=== PATIENT | female | born 1935 | race Caucasian/White ===

== ENCOUNTER 2018-09-12 21:55 | Inpatient (IN) | payer MEDICARE, OTHER, MEDICAID ==
[2018-09-13] MEDS: SOD CHLORIDE 0.9% 500 ML IV ×2 (01:02→10:47)
[2018-09-13 01:48] LABS: ADD MAN DIFF? NO
[2018-09-13 01:51] LABS: WHITE BLOOD COUNT 8.5 10^3/ul (4.8-10.8)
[2018-09-13 01:51] LABS: BASOPHILS % 0.1 % (0.0-2.0); EOSINOPHILS % 0.1 % (0.0-7.0); HEMATOCRIT 39.3 % (37.0-47.0); HEMOGLOBIN 12.9 g/dl (12.0-16.0); LYMPHOCYTES # 2.8 10^3/ul (0.8-2.9); LYMPHOCYTES % 32.6 % (15.0-51.0); MEAN CORPUSCULAR HEMOGLOBIN 31.9 pg (29.0-33.0); MEAN CORPUSCULAR HGB CONC 32.8 g/dl (32.0-37.0); MEAN CORPUSCULAR VOLUME 97.3 fl (82.0-101.0); MEAN PLATELET VOLUME 11.4 fl (7.4-10.4); MONOCYTE # 0.5 10^3/ul (0.3-0.9); NEUTROPHIL # 5.2 10^3/ul (1.6-7.5); NUCLEATED RED BLOOD CELLS% 0.2 /100WBC (0.0-0.0); PLATELET COUNT 147 10^3/UL (140-415); RED BLOOD COUNT 4.04 10^6/ul (4.20-5.40)
[2018-09-13] MEDS: morphine 2 MG INJ IV (01:51)
[2018-09-13] MEDS: ONDANSETRON 4 MG INJ IV (01:51)
[2018-09-13 02:08] LABS: ALANINE AMINOTRANSFERASE 120 IU/L (13-69); ALBUMIN 3.5 g/dl (3.3-4.9); ALKALINE PHOSPHATASE 104 IU/L (42-121); ANION GAP 11 (5-13); ASPARTATE AMINO TRANSFERASE 95 IU/L (15-46); BLOOD UREA NITROGEN 43 mg/dl (7-20); CALCIUM 8.3 mg/dl (8.4-10.2); CARBON DIOXIDE 26 mmol/L (21-31); CHLORIDE 102 mmol/L (97-110); CREATININE 1.53 mg/dl (0.44-1.00); GLUCOSE 106 mg/dl (70-220); LIPASE 76 U/L (23-300); POTASSIUM 3.6 mmol/L (3.5-5.1); SODIUM 139 mmol/L (135-144); TOTAL PROTEIN 6.4 g/dl (6.1-8.1)
[2018-09-13 02:21] LABS: TROPONIN-I 0.045 ng/ml (0.000-0.120)
[2018-09-13] MEDS: metroNIDAZOLE 500 MG/NS (PMX) 100 ML IVPB ×3 (04:42→22:15)
[2018-09-13] MEDS ORDERED: ONDANSETRON 4 MG INJ IV (05:00)
[2018-09-13] MEDS ORDERED: ACETAMINOPHEN 325 MG TAB PO (05:00)
[2018-09-13] MEDS: CIPROFLOXACIN 400MG/D5W 200 ML IVPB (05:36)
[2018-09-13 10:12] LABS: ADD UMIC YES; UR ASCORBIC ACID NEGATIVE (NEGATIVE); UR BACTERIA FEW /HPF (NONE SEEN); UR BILIRUBIN (Dip) NEGATIVE (NEGATIVE); UR BLOOD (Dip) NEGATIVE (NEGATIVE); UR CLARITY CLEAR (CLEAR); UR COLOR YELLOW (YELLOW); UR GLUCOSE (Dip) NEGATIVE (NEGATIVE); UR KETONES (Dip) NEGATIVE (NEGATIVE); UR LEUKOCYTE ESTERASE (Dip) 1+ Leu/ul (NEGATIVE); UR NITRITE (Dip) NEGATIVE (NEGATIVE); UR RBC 1 /HPF (0-5); UR SPECIFIC GRAVITY (Dip) 1.017 (1.003-1.030); UR TOTAL PROTEIN (Dip) NEGATIVE (NEGATIVE); UR UROBILINOGEN (Dip) NEGATIVE (NEGATIVE); UR WBC 36 /HPF (0-5)
[2018-09-13] MEDS: METOPROLOL 25 MG TAB PO (11:53)
[2018-09-13] MEDS: D5W-0.45 NACL + KCL 20 MEQ 1,000 ML IV (11:53)
[2018-09-13] MEDS: METOPROLOL 100 MG TAB PO (12:00)
[2018-09-13] MEDS: APIXABAN 5 MG TABLET PO ×2 (14:07→21:13)
[2018-09-13] MEDS: LEVOTHYROXINE 25 MCG TAB PO (14:07)
[2018-09-13] MEDS: FERROUS SULFATE (EC) 325 MG TAB PO ×2 (14:07→21:13)
[2018-09-13] MEDS: METOPROLOL 50 MG TAB PO ×2 (21:00→22:41)
[2018-09-13] MEDS: FUROSEMIDE 20 MG TAB PO (22:29)
[2018-09-14] MEDS: CIPROFLOXACIN 400MG/D5W 200 ML IVPB (02:51)
[2018-09-14] MEDS: metroNIDAZOLE 500 MG/NS (PMX) 100 ML IVPB (06:00)
[2018-09-14] MEDS: PANTOPRAZOLE (EC) 40 MG TAB PO (06:14)
[2018-09-14] MEDS: D5W-0.45 NACL + KCL 20 MEQ 1,000 ML IV ×2 (06:39→14:09)
[2018-09-14] MEDS: LEVOTHYROXINE 25 MCG TAB PO (06:42)
[2018-09-14 08:30] LABS: ADD MAN DIFF? NO
[2018-09-14 08:41] LABS: BASOPHILS % 0.3 % (0.0-2.0); EOSINOPHILS % 0.3 % (0.0-7.0); HEMATOCRIT 41.5 % (37.0-47.0); HEMOGLOBIN 13.5 g/dl (12.0-16.0); LYMPHOCYTES # 2.7 10^3/ul (0.8-2.9); LYMPHOCYTES % 36.1 % (15.0-51.0); MEAN CORPUSCULAR HEMOGLOBIN 32.4 pg (29.0-33.0); MEAN CORPUSCULAR HGB CONC 32.5 g/dl (32.0-37.0); MEAN CORPUSCULAR VOLUME 99.5 fl (82.0-101.0); MEAN PLATELET VOLUME 11.2 fl (7.4-10.4); MONOCYTE # 0.6 10^3/ul (0.3-0.9); MONOCYTES % 8.2 % (0.0-11.0); NEUTROPHIL # 4.1 10^3/ul (1.6-7.5); NEUTROPHILS % 54.6 % (39.0-77.0); NUCLEATED RED BLOOD CELLS # 0.1 10^3/ul (0.0-0.0); NUCLEATED RED BLOOD CELLS% 0.8 /100WBC (0.0-0.0); PLATELET COUNT 147 10^3/UL (140-415); RED BLOOD COUNT 4.17 10^6/ul (4.20-5.40); RED CELL DISTRIBUTION WIDTH 19.2 % (11.5-14.5)
[2018-09-14 08:41] LABS: WHITE BLOOD COUNT 7.5 10^3/ul (4.8-10.8)
[2018-09-14 08:58] LABS: ALANINE AMINOTRANSFERASE 153 IU/L (13-69); ALBUMIN 3.3 g/dl (3.3-4.9); ALBUMIN/GLOBULIN RATIO 1.22; ALKALINE PHOSPHATASE 73 IU/L (42-121); ANION GAP 9 (5-13); ASPARTATE AMINO TRANSFERASE 122 IU/L (15-46); BILIRUBIN,INDIRECT 0.8 mg/dl (0-1.1); BILIRUBIN,TOTAL 0.8 mg/dl (0.2-1.3); BLOOD UREA NITROGEN 29 mg/dl (7-20); CALCIUM 7.8 mg/dl (8.4-10.2); CARBON DIOXIDE 27 mmol/L (21-31); CHLORIDE 102 mmol/L (97-110); CREATININE 1.15 mg/dl (0.44-1.00); GLUCOSE 136 mg/dl (70-220); POTASSIUM 3.9 mmol/L (3.5-5.1); SODIUM 138 mmol/L (135-144)
[2018-09-14] MEDS: EZETIMIBE 10 MG TAB PO (09:15)
[2018-09-14] MEDS: AMIODARONE 200 MG TAB PO (09:15)
[2018-09-14] MEDS: METOPROLOL 50 MG TAB PO ×2 (09:15→10:48)
[2018-09-14] MEDS: FERROUS SULFATE (EC) 325 MG TAB PO ×3 (09:15→21:04)
[2018-09-14] MEDS: FOLIC ACID 1 MG TAB PO (09:16)
[2018-09-14] MEDS: DONEPEZIL 10 MG TAB PO (09:16)
[2018-09-14] MEDS: CHOLECALCIFEROL 2,000 UNIT CAP PO (09:16)
[2018-09-14] MEDS: LOSARTAN 50 MG TAB PO (09:16)
[2018-09-14] MEDS: APIXABAN 5 MG TABLET PO ×2 (09:17→21:06)
[2018-09-14] MEDS: ESCITALOPRAM 10 MG TAB PO (09:17)
[2018-09-14] MEDS: FUROSEMIDE 20 MG TAB PO (09:17)
[2018-09-14 09:30] LABS: MAGNESIUM 1.8 mg/dl (1.7-2.5)
[2018-09-14] MEDS: METOPROLOL 100 MG TAB PO ×2 (15:33→21:00)
[2018-09-15] MEDS: LORAZEPAM 0.5 MG TAB PO (01:13)
[2018-09-15] MEDS: D5W-0.45 NACL + KCL 20 MEQ 1,000 ML IV ×2 (02:00→15:17)
[2018-09-15] MEDS: LOPERAMIDE 2 MG CAP PO (02:45)
[2018-09-15] MEDS: LEVOTHYROXINE 25 MCG TAB PO ×2 (06:00→10:46)
[2018-09-15 06:50] LABS: ADD MAN DIFF? NO
[2018-09-15 06:53] LABS: BASOPHILS % 0.1 % (0.0-2.0); HEMATOCRIT 37.3 % (37.0-47.0); HEMOGLOBIN 12.4 g/dl (12.0-16.0); LYMPHOCYTES # 2.3 10^3/ul (0.8-2.9); LYMPHOCYTES % 32.3 % (15.0-51.0); MEAN CORPUSCULAR HEMOGLOBIN 32.8 pg (29.0-33.0); MEAN CORPUSCULAR HGB CONC 33.2 g/dl (32.0-37.0); MEAN CORPUSCULAR VOLUME 98.7 fl (82.0-101.0); MEAN PLATELET VOLUME 11.2 fl (7.4-10.4); MONOCYTE # 0.6 10^3/ul (0.3-0.9); MONOCYTES % 7.9 % (0.0-11.0); NEUTROPHIL # 4.1 10^3/ul (1.6-7.5); NEUTROPHILS % 59.3 % (39.0-77.0); NUCLEATED RED BLOOD CELLS # 0.5 10^3/ul (0.0-0.0); NUCLEATED RED BLOOD CELLS% 7.6 /100WBC (0.0-0.0); PLATELET COUNT 128 10^3/UL (140-415); RED BLOOD COUNT 3.78 10^6/ul (4.20-5.40); RED CELL DISTRIBUTION WIDTH 19.3 % (11.5-14.5)
[2018-09-15] MEDS: PANTOPRAZOLE (EC) 40 MG TAB PO (06:53)
[2018-09-15 07:18] LABS: ANION GAP 10 (5-13); BLOOD UREA NITROGEN 30 mg/dl (7-20); CALCIUM 7.7 mg/dl (8.4-10.2); CARBON DIOXIDE 21 mmol/L (21-31); CHLORIDE 103 mmol/L (97-110); CREATININE 1.43 mg/dl (0.44-1.00); GLUCOSE 129 mg/dl (70-220); SODIUM 134 mmol/L (135-144)
[2018-09-15] MEDS: ONDANSETRON 4 MG INJ IV (10:38)
[2018-09-15] MEDS: EZETIMIBE 10 MG TAB PO (10:46)
[2018-09-15] MEDS: ESCITALOPRAM 10 MG TAB PO (10:46)
[2018-09-15] MEDS: METOPROLOL 100 MG TAB PO ×2 (10:47→22:19)
[2018-09-15] MEDS: DONEPEZIL 10 MG TAB PO (10:48)
[2018-09-15] MEDS: FOLIC ACID 1 MG TAB PO (10:48)
[2018-09-15] MEDS: CHOLECALCIFEROL 2,000 UNIT CAP PO (10:48)
[2018-09-15] MEDS: FERROUS SULFATE (EC) 325 MG TAB PO ×3 (10:48→21:00)
[2018-09-15] MEDS: APIXABAN 5 MG TABLET PO ×2 (10:48→22:18)
[2018-09-15] MEDS: LOSARTAN 50 MG TAB PO (10:48)
[2018-09-15] MEDS: AMIODARONE 200 MG TAB PO (10:49)
[2018-09-15] MEDS: FUROSEMIDE 20 MG TAB PO (10:49)
[2018-09-15] MEDS: DEXTROSE 5%-0.45% NACL 1,000 ML IV (22:26)
[2018-09-16 06:13] LABS: ADD MAN DIFF? NO
[2018-09-16 06:27] LABS: BASOPHILS % 0.2 % (0.0-2.0); EOSINOPHILS % 0.2 % (0.0-7.0); HEMATOCRIT 36.6 % (37.0-47.0); HEMOGLOBIN 11.6 g/dl (12.0-16.0); LYMPHOCYTES # 1.9 10^3/ul (0.8-2.9); LYMPHOCYTES % 30.5 % (15.0-51.0); MEAN CORPUSCULAR HEMOGLOBIN 32.4 pg (29.0-33.0); MEAN CORPUSCULAR HGB CONC 31.7 g/dl (32.0-37.0); MEAN CORPUSCULAR VOLUME 102.2 fl (82.0-101.0); MEAN PLATELET VOLUME 11.6 fl (7.4-10.4); MONOCYTE # 0.6 10^3/ul (0.3-0.9); MONOCYTES % 8.9 % (0.0-11.0); NEUTROPHIL # 3.7 10^3/ul (1.6-7.5); NEUTROPHILS % 59.7 % (39.0-77.0); NUCLEATED RED BLOOD CELLS # 0.6 10^3/ul (0.0-0.0); NUCLEATED RED BLOOD CELLS% 9.4 /100WBC (0.0-0.0); PLATELET COUNT 109 10^3/UL (140-415); RED BLOOD COUNT 3.58 10^6/ul (4.20-5.40); RED CELL DISTRIBUTION WIDTH 20.5 % (11.5-14.5)
[2018-09-16 06:27] LABS: WHITE BLOOD COUNT 6.2 10^3/ul (4.8-10.8)
[2018-09-16] MEDS: PANTOPRAZOLE (EC) 40 MG TAB PO (06:51)
[2018-09-16] MEDS: LEVOTHYROXINE 25 MCG TAB PO (06:51)
[2018-09-16] MEDS: LOSARTAN 50 MG TAB PO (08:51)
[2018-09-16] MEDS: AMIODARONE 200 MG TAB PO (08:52)
[2018-09-16] MEDS: DONEPEZIL 10 MG TAB PO (08:52)
[2018-09-16] MEDS: ESCITALOPRAM 10 MG TAB PO (08:53)
[2018-09-16] MEDS: METOPROLOL 100 MG TAB PO ×2 (08:53→21:49)
[2018-09-16] MEDS: APIXABAN 5 MG TABLET PO ×2 (08:54→21:49)
[2018-09-16] MEDS: CHOLECALCIFEROL 2,000 UNIT CAP PO (08:54)
[2018-09-16] MEDS: FOLIC ACID 1 MG TAB PO (08:54)
[2018-09-16] MEDS: FERROUS SULFATE (EC) 325 MG TAB PO ×3 (08:54→21:00)
[2018-09-16] MEDS: FUROSEMIDE 20 MG TAB PO (08:55)
[2018-09-16] MEDS: PSYLLIUM 28% PACKET PO (08:55)
[2018-09-16] MEDS: EZETIMIBE 10 MG TAB PO (08:58)
[2018-09-16 09:12] LABS: ANION GAP 11 (5-13); BLOOD UREA NITROGEN 40 mg/dl (7-20); CALCIUM 7.9 mg/dl (8.4-10.2); CARBON DIOXIDE 21 mmol/L (21-31); CHLORIDE 101 mmol/L (97-110); CREATININE 2.41 mg/dl (0.44-1.00); GLUCOSE 121 mg/dl (70-220); POTASSIUM 5.3 mmol/L (3.5-5.1); SODIUM 133 mmol/L (135-144)
[2018-09-16 10:05] LABS: ANISOCYTOSIS 2+ (0-0); BAND NEUTROPHILS % (M) 1 % (0-4); BURR CELLS 2+ (0-0); ERYTHROBLAST% (NRBC) (M) 21 % (0-0); LYMPHOCYTES #M 1.9 10^3/ul (0.8-2.9); LYMPHOCYTES % (M) 32 % (15-51); MONOCYTE #M 0.4 10^3/ul (0.3-0.9); MONOCYTES % (M) 7 % (0-11); OVALOCYTES 1+ (0-0); PLATELET ESTIMATE DECREASED; POIKILOCYTOSIS 3+ (0-0); REACTIVE LYMPHOCYTES% (M) 1 % (0-0); SEG NEUT #M 3.7 10^3/ul (1.6-7.5); SEGMENTED NEUTROPHILS (M) % 59 % (39-77); SMUDGE%M 24 % (0-0)
[2018-09-16] MEDS: ONDANSETRON 4 MG INJ IV (12:33)
[2018-09-16] MEDS: LORAZEPAM 0.5 MG TAB PO (21:48)
[2018-09-17] MEDS: DEXTROSE 5%-0.45% NACL 1,000 ML IV ×2 (04:22→23:18)
[2018-09-17 05:25] LABS: ADD MAN DIFF? NO
[2018-09-17 05:31] LABS: WHITE BLOOD COUNT 6.6 10^3/ul (4.8-10.8)
[2018-09-17 05:31] LABS: BASOPHILS % 0.2 % (0.0-2.0); EOSINOPHILS % 0.3 % (0.0-7.0); HEMATOCRIT 37.4 % (37.0-47.0); HEMOGLOBIN 12.4 g/dl (12.0-16.0); LYMPHOCYTES # 2.7 10^3/ul (0.8-2.9); LYMPHOCYTES % 40.5 % (15.0-51.0); MEAN CORPUSCULAR HEMOGLOBIN 32.7 pg (29.0-33.0); MEAN CORPUSCULAR HGB CONC 33.2 g/dl (32.0-37.0); MEAN CORPUSCULAR VOLUME 98.7 fl (82.0-101.0); MEAN PLATELET VOLUME 11.4 fl (7.4-10.4); MONOCYTE # 0.6 10^3/ul (0.3-0.9); MONOCYTES % 8.6 % (0.0-11.0); NEUTROPHIL # 3.3 10^3/ul (1.6-7.5); NEUTROPHILS % 50.1 % (39.0-77.0); NUCLEATED RED BLOOD CELLS # 0.3 10^3/ul (0.0-0.0); NUCLEATED RED BLOOD CELLS% 4.6 /100WBC (0.0-0.0); PLATELET COUNT 105 10^3/UL (140-415); RED BLOOD COUNT 3.79 10^6/ul (4.20-5.40)
[2018-09-17] MEDS: PANTOPRAZOLE (EC) 40 MG TAB PO (06:06)
[2018-09-17] MEDS: LEVOTHYROXINE 25 MCG TAB PO (06:06)
[2018-09-17 06:18] LABS: ANION GAP 9 (5-13); BLOOD UREA NITROGEN 43 mg/dl (7-20); CARBON DIOXIDE 23 mmol/L (21-31); CHLORIDE 97 mmol/L (97-110); CREATININE 2.56 mg/dl (0.44-1.00); GLUCOSE 106 mg/dl (70-220); SODIUM 129 mmol/L (135-144)
[2018-09-17 07:15] LABS: ADD UMIC YES; UR ASCORBIC ACID NEGATIVE (NEGATIVE); UR BACTERIA FEW /HPF (NONE SEEN); UR BILIRUBIN (Dip) NEGATIVE (NEGATIVE); UR BLOOD (Dip) NEGATIVE (NEGATIVE); UR CLARITY CLOUDY (CLEAR); UR COLOR YELLOW (YELLOW); UR GLUCOSE (Dip) NEGATIVE (NEGATIVE); UR HYALINE CAST FEW /HPF (NONE SEEN); UR KETONES (Dip) NEGATIVE (NEGATIVE); UR LEUKOCYTE ESTERASE (Dip) 2+ Leu/ul (NEGATIVE); UR NITRITE (Dip) NEGATIVE (NEGATIVE); UR RBC 5 /HPF (0-5); UR SPECIFIC GRAVITY (Dip) 1.014 (1.003-1.030); UR SQUAMOUS EPITHELIAL CELL FEW /HPF (FEW); UR TOTAL PROTEIN (Dip) 2+ mg/dl (NEGATIVE); UR TRANSITIONAL EPI CELL FEW /HPF (NONE SEEN); UR UROBILINOGEN (Dip) NEGATIVE (NEGATIVE); UR WBC 111 /HPF (0-5)
[2018-09-17] MEDS: CHOLECALCIFEROL 2,000 UNIT CAP PO (08:56)
[2018-09-17] MEDS: EZETIMIBE 10 MG TAB PO (08:56)
[2018-09-17] MEDS: ESCITALOPRAM 10 MG TAB PO (08:56)
[2018-09-17] MEDS: APIXABAN 5 MG TABLET PO ×2 (08:56→21:42)
[2018-09-17] MEDS: FOLIC ACID 1 MG TAB PO (08:56)
[2018-09-17] MEDS: DONEPEZIL 10 MG TAB PO (08:57)
[2018-09-17] MEDS: METOPROLOL 100 MG TAB PO ×2 (08:57→21:41)
[2018-09-17] MEDS: PSYLLIUM 28% PACKET PO (08:57)
[2018-09-17] MEDS: FERROUS SULFATE (EC) 325 MG TAB PO ×3 (08:57→21:00)
[2018-09-17] MEDS: AMIODARONE 200 MG TAB PO (08:58)
[2018-09-17] MEDS: ONDANSETRON 4 MG INJ IV (12:30)
[2018-09-17] MEDS: LORAZEPAM 0.5 MG TAB PO (23:18)
[2018-09-18] MEDS: ACETAMINOPHEN 325 MG TAB PO (00:29)
[2018-09-18 06:07] LABS: ADD MAN DIFF? NO
[2018-09-18 06:24] LABS: BASOPHILS % 0.2 % (0.0-2.0); EOSINOPHILS % 0.3 % (0.0-7.0); HEMATOCRIT 34.9 % (37.0-47.0); HEMOGLOBIN 11.9 g/dl (12.0-16.0); LYMPHOCYTES # 1.9 10^3/ul (0.8-2.9); LYMPHOCYTES % 28.3 % (15.0-51.0); MEAN CORPUSCULAR HEMOGLOBIN 33.2 pg (29.0-33.0); MEAN CORPUSCULAR HGB CONC 34.1 g/dl (32.0-37.0); MEAN CORPUSCULAR VOLUME 97.5 fl (82.0-101.0); MEAN PLATELET VOLUME 11.4 fl (7.4-10.4); MONOCYTE # 0.7 10^3/ul (0.3-0.9); MONOCYTES % 10.4 % (0.0-11.0); NEUTROPHILS % 60.3 % (39.0-77.0); NUCLEATED RED BLOOD CELLS # 0.2 10^3/ul (0.0-0.0); NUCLEATED RED BLOOD CELLS% 2.3 /100WBC (0.0-0.0); PLATELET COUNT 107 10^3/UL (140-415); RED BLOOD COUNT 3.58 10^6/ul (4.20-5.40)
[2018-09-18 06:24] LABS: WHITE BLOOD COUNT 6.7 10^3/ul (4.8-10.8)
[2018-09-18 06:40] LABS: INR 2.41; PROTIME 26.3 Sec (11.9-14.9); PT RATIO 2.1
[2018-09-18 06:41] LABS: PARTIAL THROMBOPLASTIN TIME 35.8 Sec (23.0-35.0)
[2018-09-18 06:42] LABS: ALANINE AMINOTRANSFERASE 167 IU/L (13-69); ALBUMIN 2.8 g/dl (3.3-4.9); ALBUMIN/GLOBULIN RATIO 1.07; ALKALINE PHOSPHATASE 126 IU/L (42-121); ANION GAP 10 (5-13); ASPARTATE AMINO TRANSFERASE 124 IU/L (15-46); BILIRUBIN,INDIRECT 0.8 mg/dl (0-1.1); BILIRUBIN,TOTAL 0.8 mg/dl (0.2-1.3); BLOOD UREA NITROGEN 44 mg/dl (7-20); CALCIUM 7.5 mg/dl (8.4-10.2); CARBON DIOXIDE 20 mmol/L (21-31); CHLORIDE 98 mmol/L (97-110); CREATININE 2.19 mg/dl (0.44-1.00); GLUCOSE 107 mg/dl (70-220); POTASSIUM 4.5 mmol/L (3.5-5.1); SODIUM 128 mmol/L (135-144); TOTAL PROTEIN 5.4 g/dl (6.1-8.1)
[2018-09-18 06:50] LABS: B-TYPE NATRIURETIC PEPTIDE 3640 PG/ML (0-450)
[2018-09-18 06:54] LABS: MAGNESIUM 2.1 mg/dl (1.7-2.5)
[2018-09-18] MEDS: PANTOPRAZOLE (EC) 40 MG TAB PO (07:29)
[2018-09-18] MEDS: LEVOTHYROXINE 25 MCG TAB PO (07:29)
[2018-09-18] MEDS: METOPROLOL 100 MG TAB PO ×2 (08:36→21:04)
[2018-09-18] MEDS: FERROUS SULFATE (EC) 325 MG TAB PO ×3 (08:52→21:03)
[2018-09-18] MEDS: CHOLECALCIFEROL 2,000 UNIT CAP PO (08:52)
[2018-09-18] MEDS: EZETIMIBE 10 MG TAB PO (08:52)
[2018-09-18] MEDS: FOLIC ACID 1 MG TAB PO (08:52)
[2018-09-18] MEDS: ESCITALOPRAM 10 MG TAB PO (08:53)
[2018-09-18] MEDS: DONEPEZIL 10 MG TAB PO (08:53)
[2018-09-18] MEDS: APIXABAN 5 MG TABLET PO ×2 (08:53→21:02)
[2018-09-18] MEDS: PSYLLIUM 28% PACKET PO (08:54)
[2018-09-18] MEDS: AMIODARONE 200 MG TAB PO (08:54)
[2018-09-18] MEDS: DEXTROSE 5%-0.9% NACL 1,000 ML IV (11:38)
[2018-09-18] MEDS: ONDANSETRON 4 MG INJ IV (12:55)
[2018-09-18] MEDS: FUROSEMIDE 20 MG INJ IV ×2 (14:46→17:30)
[2018-09-18] MEDS ORDERED: FUROSEMIDE 250 MG in DEXTROSE 5% 225 ML IV (19:00)
[2018-09-18 19:06] LABS: PROTIME 22.8 Sec (11.9-14.9)
[2018-09-18 19:07] LABS: PARTIAL THROMBOPLASTIN TIME 30.3 Sec (23.0-35.0)
[2018-09-18] MEDS: ALBUMIN HUMAN 25% 100 ML IV (19:51)
[2018-09-18 20:03] LABS: 50/50 PT IMMED 16.1 Sec
[2018-09-18] MEDS: MEGESTROL (40 MG/ML) 10ML CUP PO (21:04)
[2018-09-18] MEDS: BUMETANIDE 12 MG in DEXTROSE 5% 72 ML IV (22:26)
[2018-09-19 05:21] LABS: AADO2 Arterial 51.7 mmHg (7.0-24.0); Allen Test ACCEPTAB; Arterial Base Excess -1.7 mmol/L (-3.0-3); Arterial Blood Gas Oxygen Sat 97.2 mmHG (95.0-100.0); Arterial COHb 0.5 % (0.0-3.0); Arterial Fraction of Oxyhgb 96.5 % (93.0-99.0); Arterial MetHb 0.2 % (0.0-1.5); Arterial pCO2 34.4 mmhg (35-45); MODE NASAL CANNULA; Site Right Radial
[2018-09-19 05:43] LABS: HAAIG REFLEX REFLEX FILED
[2018-09-19 05:50] LABS: ADD MAN DIFF? NO
[2018-09-19 05:56] LABS: BASOPHILS % 0.1 % (0.0-2.0); EOSINOPHILS % 0.4 % (0.0-7.0); HEMATOCRIT 36.5 % (37.0-47.0); HEMOGLOBIN 12.4 g/dl (12.0-16.0); LYMPHOCYTES # 1.6 10^3/ul (0.8-2.9); LYMPHOCYTES % 20.5 % (15.0-51.0); MEAN CORPUSCULAR HEMOGLOBIN 32.8 pg (29.0-33.0); MEAN CORPUSCULAR VOLUME 96.6 fl (82.0-101.0); MEAN PLATELET VOLUME 11.1 fl (7.4-10.4); MONOCYTE # 0.9 10^3/ul (0.3-0.9); MONOCYTES % 11.3 % (0.0-11.0); NEUTROPHIL # 5.3 10^3/ul (1.6-7.5); NEUTROPHILS % 67.4 % (39.0-77.0); NUCLEATED RED BLOOD CELLS # 0.1 10^3/ul (0.0-0.0); PLATELET COUNT 117 10^3/UL (140-415); RED BLOOD COUNT 3.78 10^6/ul (4.20-5.40); RED CELL DISTRIBUTION WIDTH 20.7 % (11.5-14.5)
[2018-09-19 05:56] LABS: WHITE BLOOD COUNT 7.8 10^3/ul (4.8-10.8)
[2018-09-19 06:09] LABS: ALANINE AMINOTRANSFERASE 239 IU/L (13-69); ALBUMIN 3.4 g/dl (3.3-4.9); ALBUMIN/GLOBULIN RATIO 1.36; ALKALINE PHOSPHATASE 153 IU/L (42-121); ANION GAP 9 (5-13); ASPARTATE AMINO TRANSFERASE 212 IU/L (15-46); BLOOD UREA NITROGEN 41 mg/dl (7-20); CALCIUM 8.1 mg/dl (8.4-10.2); CARBON DIOXIDE 26 mmol/L (21-31); CHLORIDE 96 mmol/L (97-110); CREATININE 1.95 mg/dl (0.44-1.00); GLUCOSE 95 mg/dl (70-220); POTASSIUM 3.5 mmol/L (3.5-5.1); SODIUM 131 mmol/L (135-144); TOTAL PROTEIN 5.9 g/dl (6.1-8.1)
[2018-09-19 06:14] LABS: INR 2.16; PARTIAL THROMBOPLASTIN TIME 34.7 Sec (23.0-35.0); PROTIME 24.2 Sec (11.9-14.9); PT RATIO 1.9
[2018-09-19 06:48] LABS: HEPATITIS B SURFACE ANTIGEN NEGATIVE (NEGATIVE)
[2018-09-19] MEDS: LEVOTHYROXINE 25 MCG TAB PO (06:53)
[2018-09-19] MEDS: PANTOPRAZOLE (EC) 40 MG TAB PO (06:53)
[2018-09-19] MEDS: FUROSEMIDE 20 MG INJ IV ×2 (06:54→17:16)
[2018-09-19 07:04] LABS: B-TYPE NATRIURETIC PEPTIDE 4150 PG/ML (0-450)
[2018-09-19 07:06] LABS: HEPATITIS B CORE ANTIBODY NEGATIVE (NEGATIVE); HEPATITIS C VIRAL ANTIBODY NEGATIVE (NEGATIVE)
[2018-09-19] MEDS: MEGESTROL (40 MG/ML) 10ML CUP PO ×2 (10:10→20:22)
[2018-09-19] MEDS: ESCITALOPRAM 10 MG TAB PO (10:11)
[2018-09-19] MEDS: DONEPEZIL 10 MG TAB PO (10:11)
[2018-09-19] MEDS: EZETIMIBE 10 MG TAB PO (10:11)
[2018-09-19] MEDS: FOLIC ACID 1 MG TAB PO (10:12)
[2018-09-19] MEDS: AMIODARONE 200 MG TAB PO (10:12)
[2018-09-19] MEDS: PSYLLIUM 28% PACKET PO (10:12)
[2018-09-19] MEDS: CHOLECALCIFEROL 2,000 UNIT CAP PO (10:12)
[2018-09-19] MEDS: APIXABAN 5 MG TABLET PO ×2 (10:12→20:22)
[2018-09-19] MEDS: METOPROLOL 100 MG TAB PO ×2 (10:12→20:54)
[2018-09-19] MEDS ORDERED: BUMETANIDE 1 MG INJ IV (18:30)
[2018-09-19] MEDS: FERROUS SULFATE (EC) 325 MG TAB PO (20:22)
[2018-09-19] MEDS: BUMETANIDE 12 MG in DEXTROSE 5% 72 ML IV (20:23)
[2018-09-20] MEDS: FUROSEMIDE 20 MG INJ IV (05:26)
[2018-09-20] MEDS: PANTOPRAZOLE (EC) 40 MG TAB PO (05:26)
[2018-09-20] MEDS: LEVOTHYROXINE 25 MCG TAB PO (05:26)
[2018-09-20 06:51] LABS: BLOOD UREA NITROGEN 34 mg/dl (7-20); CALCIUM 7.7 mg/dl (8.4-10.2); CHLORIDE 94 mmol/L (97-110); CREATININE 1.32 mg/dl (0.44-1.00); GLUCOSE 129 mg/dl (70-220); SODIUM 138 mmol/L (135-144)
[2018-09-20 06:53] LABS: POTASSIUM 2.8 mmol/L (3.5-5.1)
[2018-09-20 07:36] LABS: ANION GAP 11 (5-13)
[2018-09-20 07:37] LABS: CARBON DIOXIDE 33 mmol/L (21-31)
[2018-09-20] MEDS: PSYLLIUM 28% PACKET PO (08:54)
[2018-09-20] MEDS: MEGESTROL (40 MG/ML) 10ML CUP PO ×2 (08:54→20:09)
[2018-09-20] MEDS: DONEPEZIL 10 MG TAB PO (08:55)
[2018-09-20] MEDS: AMIODARONE 200 MG TAB PO (08:56)
[2018-09-20] MEDS: METOPROLOL 100 MG TAB PO ×2 (08:56→20:19)
[2018-09-20] MEDS: FOLIC ACID 1 MG TAB PO (08:57)
[2018-09-20] MEDS: APIXABAN 5 MG TABLET PO ×2 (08:58→20:09)
[2018-09-20] MEDS: EZETIMIBE 10 MG TAB PO (08:58)
[2018-09-20] MEDS: ESCITALOPRAM 10 MG TAB PO (08:58)
[2018-09-20] MEDS: CHOLECALCIFEROL 2,000 UNIT CAP PO (08:58)
[2018-09-20] MEDS: PHYTONADIONE (1 MG/ML PO SYG) PO (09:08)
[2018-09-20] MEDS: POTASSIUM CHLORIDE 100 ML IVPB (10:37)
[2018-09-20] MEDS: BUMETANIDE 1 MG INJ IV ×2 (10:37→17:37)
[2018-09-20] MEDS: MAGNESIUM SULFATE 2 GM/50 ML 50 ML IVPB (12:42)
[2018-09-20] MEDS: FERROUS SULFATE (EC) 325 MG TAB PO (20:09)
[2018-09-20] MEDS: POTASSIUM CHLORIDE (SR) 20 MEQ TAB PO (20:09)
[2018-09-21] MEDS: BUMETANIDE 1 MG INJ IV ×2 (05:51→17:27)
[2018-09-21] MEDS: PANTOPRAZOLE (EC) 40 MG TAB PO (05:51)
[2018-09-21] MEDS: LEVOTHYROXINE 25 MCG TAB PO (05:51)
[2018-09-21 06:45] LABS: BLOOD UREA NITROGEN 31 mg/dl (7-20); CALCIUM 7.2 mg/dl (8.4-10.2); CHLORIDE 91 mmol/L (97-110); CREATININE 1.29 mg/dl (0.44-1.00); GLUCOSE 89 mg/dl (70-220); POTASSIUM 3.3 mmol/L (3.5-5.1); SODIUM 136 mmol/L (135-144)
[2018-09-21 07:07] LABS: ANION GAP 5 (5-13)
[2018-09-21 07:21] LABS: CARBON DIOXIDE 40 mmol/L (21-31)
[2018-09-21] MEDS: METOPROLOL 100 MG TAB PO (09:01)
[2018-09-21] MEDS: AMIODARONE 200 MG TAB PO (09:02)
[2018-09-21] MEDS: CHOLECALCIFEROL 2,000 UNIT CAP PO (09:02)
[2018-09-21] MEDS: DONEPEZIL 10 MG TAB PO (09:03)
[2018-09-21] MEDS: ESCITALOPRAM 10 MG TAB PO (09:03)
[2018-09-21] MEDS: EZETIMIBE 10 MG TAB PO (09:03)
[2018-09-21] MEDS: MEGESTROL (40 MG/ML) 10ML CUP PO ×2 (09:03→20:56)
[2018-09-21] MEDS: PSYLLIUM 28% PACKET PO (09:03)
[2018-09-21] MEDS: FOLIC ACID 1 MG TAB PO (09:04)
[2018-09-21] MEDS: APIXABAN 5 MG TABLET PO ×2 (09:04→20:55)
[2018-09-21] MEDS: POTASSIUM CHLORIDE (SR) 20 MEQ TAB PO ×2 (09:04→20:56)
[2018-09-21 11:21] LABS: MITOCHONDRIAL TB NEGATIVE (NEGATIVE); SMOOTH MUSCLE AB SCREEN NEGATIVE (NEGATIVE)
[2018-09-21] MEDS: PHYTONADIONE (1 MG/ML PO SYG) PO (12:09)
[2018-09-21 12:11] LABS: ALPHA 1 ANTITRYPSIN 150 mg/dL (83-199); CERULOPLASMIN 36 mg/dL (18-53)
[2018-09-21 13:47] LABS: ANA SCREEN NEGATIVE (NEGATIVE)
[2018-09-21] MEDS: METOPROLOL 50 MG TAB PO (20:57)
[2018-09-22] MEDS: LEVOTHYROXINE 25 MCG TAB PO (06:29)
[2018-09-22] MEDS: PANTOPRAZOLE (EC) 40 MG TAB PO (06:29)
[2018-09-22 06:42] LABS: ANION GAP 8 (5-13); BLOOD UREA NITROGEN 34 mg/dl (7-20); CALCIUM 7.8 mg/dl (8.4-10.2); CARBON DIOXIDE 35 mmol/L (21-31); CHLORIDE 93 mmol/L (97-110); CREATININE 1.37 mg/dl (0.44-1.00); GLUCOSE 104 mg/dl (70-220); POTASSIUM 4.8 mmol/L (3.5-5.1); SODIUM 136 mmol/L (135-144)
[2018-09-22 06:43] LABS: INR 1.24; PARTIAL THROMBOPLASTIN TIME 28.2 Sec (23.0-35.0); PROTIME 15.7 Sec (11.9-14.9); PT RATIO 1.2
[2018-09-22 06:55] LABS: MAGNESIUM 1.8 mg/dl (1.7-2.5)
[2018-09-22] MEDS: APIXABAN 5 MG TABLET PO ×2 (08:43→21:53)
[2018-09-22] MEDS: PHYTONADIONE (1 MG/ML PO SYG) PO (08:43)
[2018-09-22] MEDS: PSYLLIUM 28% PACKET PO (08:43)
[2018-09-22] MEDS: MEGESTROL (40 MG/ML) 10ML CUP PO ×2 (08:43→21:55)
[2018-09-22] MEDS: AMIODARONE 200 MG TAB PO (08:44)
[2018-09-22] MEDS: DONEPEZIL 10 MG TAB PO (08:45)
[2018-09-22] MEDS: EZETIMIBE 10 MG TAB PO (08:45)
[2018-09-22] MEDS: CHOLECALCIFEROL 2,000 UNIT CAP PO (08:45)
[2018-09-22] MEDS: METOPROLOL 50 MG TAB PO ×2 (08:46→21:55)
[2018-09-22] MEDS: FOLIC ACID 1 MG TAB PO (08:47)
[2018-09-22] MEDS: POTASSIUM CHLORIDE (SR) 20 MEQ TAB PO ×2 (08:47→21:53)
[2018-09-22] MEDS: ESCITALOPRAM 10 MG TAB PO (08:47)
[2018-09-22] MEDS ORDERED: MAGNESIUM SULFATE 2 GM/50 ML 50 ML (12:12)
[2018-09-22] MEDS: MAGNESIUM SULFATE 2 GM/50 ML 50 ML IVPB (12:19)
[2018-09-22] MEDS: CEFAZOLIN 1 GM/50 ML (PMX) 50 ML IVPB (16:18)
[2018-09-22] MEDS: BUMETANIDE 1 MG TAB PO (17:25)
[2018-09-22 18:36] LABS: ADD UMIC YES; UR ASCORBIC ACID 20 mg/dL (NEGATIVE); UR BILIRUBIN (Dip) NEGATIVE (NEGATIVE); UR BLOOD (Dip) 3+ mg/dL (NEGATIVE); UR CLARITY CLOUDY (CLEAR); UR COLOR YELLOW (YELLOW); UR GLUCOSE (Dip) NEGATIVE (NEGATIVE); UR KETONES (Dip) NEGATIVE (NEGATIVE); UR LEUKOCYTE ESTERASE (Dip) 1+ Leu/ul (NEGATIVE); UR NITRITE (Dip) NEGATIVE (NEGATIVE); UR RBC > 182 /HPF (0-5); UR SPECIFIC GRAVITY (Dip) 1.018 (1.003-1.030); UR TOTAL PROTEIN (Dip) 2+ mg/dl (NEGATIVE); UR UROBILINOGEN (Dip) NEGATIVE (NEGATIVE); UR WBC 91 /HPF (0-5)
[2018-09-23] MEDS: CEFAZOLIN 1 GM/50 ML (PMX) 50 ML IVPB ×3 (00:49→21:11)
[2018-09-23 06:40] LABS: ANION GAP 4 (5-13); BLOOD UREA NITROGEN 28 mg/dl (7-20); CALCIUM 7.7 mg/dl (8.4-10.2); CARBON DIOXIDE 35 mmol/L (21-31); CHLORIDE 94 mmol/L (97-110); CREATININE 1.05 mg/dl (0.44-1.00); GLUCOSE 145 mg/dl (70-220); POTASSIUM 3.8 mmol/L (3.5-5.1); SODIUM 133 mmol/L (135-144)
[2018-09-23] MEDS: BUMETANIDE 1 MG TAB PO ×2 (06:40→18:34)
[2018-09-23] MEDS: PANTOPRAZOLE (EC) 40 MG TAB PO (06:40)
[2018-09-23] MEDS: LEVOTHYROXINE 25 MCG TAB PO (06:40)
[2018-09-23 06:42] LABS: URIC ACID 9.4 mg/dl (3.1-7.9)
[2018-09-23] MEDS: MEGESTROL (40 MG/ML) 10ML CUP PO ×2 (08:20→21:10)
[2018-09-23] MEDS: ESCITALOPRAM 10 MG TAB PO (08:22)
[2018-09-23] MEDS: POTASSIUM CHLORIDE (SR) 20 MEQ TAB PO ×2 (08:22→21:11)
[2018-09-23] MEDS: EZETIMIBE 10 MG TAB PO (08:23)
[2018-09-23] MEDS: DONEPEZIL 10 MG TAB PO (08:24)
[2018-09-23] MEDS: AMIODARONE 200 MG TAB PO (08:24)
[2018-09-23] MEDS: CHOLECALCIFEROL 2,000 UNIT CAP PO (08:24)
[2018-09-23] MEDS: APIXABAN 5 MG TABLET PO ×2 (08:25→21:11)
[2018-09-23] MEDS: FOLIC ACID 1 MG TAB PO (08:25)
[2018-09-23] MEDS: PSYLLIUM 28% PACKET PO (08:28)
[2018-09-23] MEDS: METOPROLOL 50 MG TAB PO ×2 (09:00→21:10)
[2018-09-23] MEDS: LORAZEPAM 0.5 MG TAB PO (21:13)
[2018-09-24 05:45] LABS: ANION GAP 6 (5-13); BLOOD UREA NITROGEN 27 mg/dl (7-20); CALCIUM 7.9 mg/dl (8.4-10.2); CARBON DIOXIDE 35 mmol/L (21-31); CHLORIDE 94 mmol/L (97-110); CREATININE 1.09 mg/dl (0.44-1.00); GLUCOSE 102 mg/dl (70-220); POTASSIUM 4.4 mmol/L (3.5-5.1); SODIUM 135 mmol/L (135-144)
[2018-09-24] MEDS: PANTOPRAZOLE (EC) 40 MG TAB PO (06:11)
[2018-09-24] MEDS: BUMETANIDE 1 MG TAB PO ×2 (06:11→18:08)
[2018-09-24] MEDS: LEVOTHYROXINE 25 MCG TAB PO (06:11)
[2018-09-24] MEDS: MEGESTROL (40 MG/ML) 10ML CUP PO ×2 (08:32→20:35)
[2018-09-24] MEDS: FOLIC ACID 1 MG TAB PO (08:36)
[2018-09-24] MEDS: AMIODARONE 200 MG TAB PO (08:37)
[2018-09-24] MEDS: POTASSIUM CHLORIDE (SR) 20 MEQ TAB PO ×2 (08:38→20:36)
[2018-09-24] MEDS: ESCITALOPRAM 10 MG TAB PO (08:38)
[2018-09-24] MEDS: EZETIMIBE 10 MG TAB PO (08:39)
[2018-09-24] MEDS: CHOLECALCIFEROL 2,000 UNIT CAP PO (08:39)
[2018-09-24] MEDS: APIXABAN 5 MG TABLET PO ×2 (08:40→20:36)
[2018-09-24] MEDS: DONEPEZIL 10 MG TAB PO (08:40)
[2018-09-24] MEDS: METOPROLOL 50 MG TAB PO ×2 (08:41→20:36)
[2018-09-24] MEDS: CEFAZOLIN 1 GM/50 ML (PMX) 50 ML IVPB ×2 (08:42→20:37)
[2018-09-24] MEDS: PSYLLIUM 28% PACKET PO (08:45)
[2018-09-25] MEDS: PANTOPRAZOLE (EC) 40 MG TAB PO (06:28)
[2018-09-25] MEDS: BUMETANIDE 1 MG TAB PO ×2 (06:28→17:09)
[2018-09-25] MEDS: LEVOTHYROXINE 25 MCG TAB PO (06:28)
[2018-09-25 06:38] LABS: ANION GAP 8 (5-13); BLOOD UREA NITROGEN 26 mg/dl (7-20); CALCIUM 8.2 mg/dl (8.4-10.2); CARBON DIOXIDE 30 mmol/L (21-31); CHLORIDE 93 mmol/L (97-110); CREATININE 1.11 mg/dl (0.44-1.00); GLUCOSE 118 mg/dl (70-220); POTASSIUM 4.8 mmol/L (3.5-5.1); SODIUM 131 mmol/L (135-144)
[2018-09-25] MEDS: MEGESTROL (40 MG/ML) 10ML CUP PO ×2 (09:33→20:30)
[2018-09-25] MEDS: PSYLLIUM 28% PACKET PO (09:34)
[2018-09-25] MEDS: ESCITALOPRAM 10 MG TAB PO (09:35)
[2018-09-25] MEDS: EZETIMIBE 10 MG TAB PO (09:35)
[2018-09-25] MEDS: AMIODARONE 200 MG TAB PO (09:35)
[2018-09-25] MEDS: APIXABAN 5 MG TABLET PO ×2 (09:36→20:30)
[2018-09-25] MEDS: METOPROLOL 50 MG TAB PO ×2 (09:36→20:34)
[2018-09-25] MEDS: FOLIC ACID 1 MG TAB PO (09:36)
[2018-09-25] MEDS: CHOLECALCIFEROL 2,000 UNIT CAP PO (09:37)
[2018-09-25] MEDS: POTASSIUM CHLORIDE (SR) 20 MEQ TAB PO ×2 (09:37→20:30)
[2018-09-25] MEDS: DONEPEZIL 10 MG TAB PO (09:37)
[2018-09-25] MEDS: CEFAZOLIN 1 GM/50 ML (PMX) 50 ML IVPB ×2 (09:43→20:29)
[2018-09-25] MEDS: LORAZEPAM 0.5 MG TAB PO (23:30)
[2018-09-26 06:11] LABS: ADD MAN DIFF? NO
[2018-09-26 06:26] LABS: BASOPHILS % 0.5 % (0.0-2.0); EOSINOPHILS % 0.3 % (0.0-7.0); HEMATOCRIT 37.9 % (37.0-47.0); HEMOGLOBIN 12.3 g/dl (12.0-16.0); LYMPHOCYTES # 2.5 10^3/ul (0.8-2.9); LYMPHOCYTES % 42.5 % (15.0-51.0); MEAN CORPUSCULAR HEMOGLOBIN 32.6 pg (29.0-33.0); MEAN CORPUSCULAR HGB CONC 32.5 g/dl (32.0-37.0); MEAN CORPUSCULAR VOLUME 100.5 fl (82.0-101.0); MEAN PLATELET VOLUME 10.7 fl (7.4-10.4); MONOCYTE # 0.8 10^3/ul (0.3-0.9); MONOCYTES % 12.7 % (0.0-11.0); NEUTROPHIL # 2.6 10^3/ul (1.6-7.5); NEUTROPHILS % 43.7 % (39.0-77.0); PLATELET COUNT 103 10^3/UL (140-415); RED BLOOD COUNT 3.77 10^6/ul (4.20-5.40); RED CELL DISTRIBUTION WIDTH 19.9 % (11.5-14.5)
[2018-09-26 06:26] LABS: WHITE BLOOD COUNT 5.9 10^3/ul (4.8-10.8)
[2018-09-26] MEDS: BUMETANIDE 1 MG TAB PO ×2 (06:43→17:34)
[2018-09-26] MEDS: LEVOTHYROXINE 25 MCG TAB PO (06:43)
[2018-09-26] MEDS: PANTOPRAZOLE (EC) 40 MG TAB PO (06:43)
[2018-09-26 06:57] LABS: ALANINE AMINOTRANSFERASE 49 IU/L (13-69); ALBUMIN 2.9 g/dl (3.3-4.9); ALBUMIN/GLOBULIN RATIO 1.03; ALKALINE PHOSPHATASE 61 IU/L (42-121); ANION GAP 9 (5-13); ASPARTATE AMINO TRANSFERASE 38 IU/L (15-46); BILIRUBIN,INDIRECT 0.6 mg/dl (0-1.1); BILIRUBIN,TOTAL 0.6 mg/dl (0.2-1.3); BLOOD UREA NITROGEN 31 mg/dl (7-20); CARBON DIOXIDE 30 mmol/L (21-31); CHLORIDE 95 mmol/L (97-110); CREATININE 1.17 mg/dl (0.44-1.00); GLUCOSE 87 mg/dl (70-220); POTASSIUM 4.7 mmol/L (3.5-5.1); SODIUM 134 mmol/L (135-144); TOTAL PROTEIN 5.7 g/dl (6.1-8.1)
[2018-09-26] MEDS: MEGESTROL (40 MG/ML) 10ML CUP PO ×2 (10:13→22:11)
[2018-09-26] MEDS: ESCITALOPRAM 10 MG TAB PO (10:14)
[2018-09-26] MEDS: CHOLECALCIFEROL 2,000 UNIT CAP PO (10:14)
[2018-09-26] MEDS: POTASSIUM CHLORIDE (SR) 20 MEQ TAB PO ×2 (10:14→22:10)
[2018-09-26] MEDS: EZETIMIBE 10 MG TAB PO (10:14)
[2018-09-26] MEDS: PSYLLIUM 28% PACKET PO (10:14)
[2018-09-26] MEDS: APIXABAN 5 MG TABLET PO ×2 (10:14→22:11)
[2018-09-26] MEDS: METOPROLOL 50 MG TAB PO (10:15)
[2018-09-26] MEDS: FOLIC ACID 1 MG TAB PO (10:15)
[2018-09-26] MEDS: DONEPEZIL 10 MG TAB PO (10:15)
[2018-09-26] MEDS: AMIODARONE 200 MG TAB PO (10:15)
[2018-09-26] MEDS: CEFAZOLIN 1 GM/50 ML (PMX) 50 ML IVPB ×2 (10:16→22:09)
[2018-09-26] MEDS: METOPROLOL 100 MG TAB PO (22:11)
[2018-09-27] MEDS: LORAZEPAM 0.5 MG TAB PO ×2 (00:15→23:27)
[2018-09-27] MEDS: PANTOPRAZOLE (EC) 40 MG TAB PO (06:28)
[2018-09-27] MEDS: LEVOTHYROXINE 25 MCG TAB PO (06:28)
[2018-09-27] MEDS: BUMETANIDE 1 MG TAB PO ×2 (06:29→17:05)
[2018-09-27 06:30] LABS: ANION GAP 8 (5-13); BLOOD UREA NITROGEN 35 mg/dl (7-20); CALCIUM 8.2 mg/dl (8.4-10.2); CARBON DIOXIDE 29 mmol/L (21-31); CHLORIDE 98 mmol/L (97-110); GLUCOSE 145 mg/dl (70-220); MAGNESIUM 1.8 mg/dl (1.7-2.5); PHOSPHORUS 3.7 mg/dl (2.5-4.9); POTASSIUM 4.3 mmol/L (3.5-5.1); SODIUM 135 mmol/L (135-144)
[2018-09-27] MEDS: AMIODARONE 200 MG TAB PO (08:31)
[2018-09-27] MEDS: ESCITALOPRAM 10 MG TAB PO (08:31)
[2018-09-27] MEDS: DONEPEZIL 10 MG TAB PO (08:31)
[2018-09-27] MEDS: APIXABAN 5 MG TABLET PO ×2 (08:31→21:39)
[2018-09-27] MEDS: EZETIMIBE 10 MG TAB PO (08:32)
[2018-09-27] MEDS: PSYLLIUM 28% PACKET PO (08:32)
[2018-09-27] MEDS: CEFAZOLIN 1 GM/50 ML (PMX) 50 ML IVPB ×2 (08:32→21:38)
[2018-09-27] MEDS: FOLIC ACID 1 MG TAB PO (08:32)
[2018-09-27] MEDS: METOPROLOL 100 MG TAB PO ×2 (08:32→21:42)
[2018-09-27] MEDS: CHOLECALCIFEROL 2,000 UNIT CAP PO (08:32)
[2018-09-27] MEDS: MEGESTROL (40 MG/ML) 10ML CUP PO ×2 (08:34→21:38)
[2018-09-27] MEDS: POTASSIUM CHLORIDE (SR) 20 MEQ TAB PO ×2 (08:57→21:39)
[2018-09-28] MEDS: LEVOTHYROXINE 25 MCG TAB PO (05:41)
[2018-09-28] MEDS: PANTOPRAZOLE (EC) 40 MG TAB PO (05:41)
[2018-09-28] MEDS: BUMETANIDE 1 MG TAB PO ×2 (05:41→17:45)
[2018-09-28] MEDS: MEGESTROL (40 MG/ML) 10ML CUP PO ×2 (09:52→21:59)
[2018-09-28] MEDS: PSYLLIUM 28% PACKET PO (09:53)
[2018-09-28] MEDS: POTASSIUM CHLORIDE (SR) 20 MEQ TAB PO ×2 (09:53→21:59)
[2018-09-28] MEDS: ESCITALOPRAM 10 MG TAB PO (09:53)
[2018-09-28] MEDS: FOLIC ACID 1 MG TAB PO (09:54)
[2018-09-28] MEDS: EZETIMIBE 10 MG TAB PO (09:55)
[2018-09-28] MEDS: APIXABAN 5 MG TABLET PO ×2 (09:56→22:00)
[2018-09-28] MEDS: CHOLECALCIFEROL 2,000 UNIT CAP PO (09:56)
[2018-09-28] MEDS: AMIODARONE 200 MG TAB PO (09:57)
[2018-09-28] MEDS: CEFAZOLIN 1 GM/50 ML (PMX) 50 ML IVPB (09:57)
[2018-09-28] MEDS: DONEPEZIL 10 MG TAB PO (09:57)
[2018-09-28] MEDS: BUMETANIDE 1 MG INJ IV (09:57)
[2018-09-28] MEDS: METOPROLOL 100 MG TAB PO ×2 (09:58→21:59)
[2018-09-28] MEDS: CEPHALEXIN 500 MG CAP PO (22:00)
[2018-09-28] MEDS: LORAZEPAM 0.5 MG TAB PO (22:15)
[2018-09-29] MEDS: PANTOPRAZOLE (EC) 40 MG TAB PO (06:11)
[2018-09-29] MEDS: LEVOTHYROXINE 25 MCG TAB PO (06:11)
[2018-09-29] MEDS: BUMETANIDE 1 MG TAB PO ×2 (06:11→17:52)
[2018-09-29 06:20] LABS: ADD MAN DIFF? NO
[2018-09-29 06:28] LABS: WHITE BLOOD COUNT 6.9 10^3/ul (4.8-10.8)
[2018-09-29 06:28] LABS: BASOPHILS % 0.4 % (0.0-2.0); EOSINOPHILS % 0.3 % (0.0-7.0); HEMATOCRIT 37.7 % (37.0-47.0); HEMOGLOBIN 12.4 g/dl (12.0-16.0); LYMPHOCYTES # 2.7 10^3/ul (0.8-2.9); LYMPHOCYTES % 38.3 % (15.0-51.0); MEAN CORPUSCULAR HEMOGLOBIN 32.7 pg (29.0-33.0); MEAN CORPUSCULAR HGB CONC 32.9 g/dl (32.0-37.0); MEAN CORPUSCULAR VOLUME 99.5 fl (82.0-101.0); MEAN PLATELET VOLUME 10.7 fl (7.4-10.4); MONOCYTE # 0.7 10^3/ul (0.3-0.9); MONOCYTES % 9.9 % (0.0-11.0); NEUTROPHIL # 3.5 10^3/ul (1.6-7.5); NEUTROPHILS % 50.8 % (39.0-77.0); PLATELET COUNT 150 10^3/UL (140-415); RED BLOOD COUNT 3.79 10^6/ul (4.20-5.40); RED CELL DISTRIBUTION WIDTH 19.6 % (11.5-14.5)
[2018-09-29 06:41] LABS: ANION GAP 11 (5-13); BLOOD UREA NITROGEN 36 mg/dl (7-20); CALCIUM 8.7 mg/dl (8.4-10.2); CARBON DIOXIDE 27 mmol/L (21-31); CHLORIDE 100 mmol/L (97-110); CREATININE 1.35 mg/dl (0.44-1.00); GLUCOSE 90 mg/dl (70-220); MAGNESIUM 1.8 mg/dl (1.7-2.5); PHOSPHORUS 4.5 mg/dl (2.5-4.9); POTASSIUM 4.5 mmol/L (3.5-5.1); SODIUM 138 mmol/L (135-144)
[2018-09-29] MEDS: EZETIMIBE 10 MG TAB PO (09:42)
[2018-09-29] MEDS: CEPHALEXIN 500 MG CAP PO ×3 (09:43→20:28)
[2018-09-29] MEDS: ESCITALOPRAM 10 MG TAB PO (09:43)
[2018-09-29] MEDS: POTASSIUM CHLORIDE (SR) 20 MEQ TAB PO ×2 (09:43→20:28)
[2018-09-29] MEDS: CHOLECALCIFEROL 2,000 UNIT CAP PO (09:43)
[2018-09-29] MEDS: APIXABAN 5 MG TABLET PO ×2 (09:43→20:28)
[2018-09-29] MEDS: DONEPEZIL 10 MG TAB PO (09:43)
[2018-09-29] MEDS: FOLIC ACID 1 MG TAB PO (09:43)
[2018-09-29] MEDS: MEGESTROL (40 MG/ML) 10ML CUP PO ×2 (09:44→20:28)
[2018-09-29] MEDS: METOPROLOL 100 MG TAB PO ×2 (09:44→20:28)
[2018-09-29] MEDS: PSYLLIUM 28% PACKET PO (09:44)
[2018-09-29] MEDS: AMIODARONE 200 MG TAB PO (09:44)
[2018-09-29] MEDS: ONDANSETRON 4 MG INJ IV (15:12)
[2018-09-29] MEDS: LORAZEPAM 0.5 MG TAB PO (15:12)
[2018-09-29] MEDS: ZOLPIDEM 5 MG TAB PO (20:34)
[2018-09-29] MEDS: PRAMIPEXOLE 0.25 MG TAB PO (20:41)
[2018-09-30] MEDS: LORAZEPAM 2 MG INJ IV (00:30)
[2018-09-30 05:54] LABS: ANION GAP 11 (5-13)
[2018-09-30 06:04] LABS: BLOOD UREA NITROGEN 40 mg/dl (7-20); CALCIUM 8.3 mg/dl (8.4-10.2); CARBON DIOXIDE 25 mmol/L (21-31); CHLORIDE 101 mmol/L (97-110); CREATININE 1.73 mg/dl (0.44-1.00); GLUCOSE 80 mg/dl (70-220); POTASSIUM 4.8 mmol/L (3.5-5.1); SODIUM 137 mmol/L (135-144)
[2018-09-30] MEDS: BUMETANIDE 1 MG TAB PO (06:29)
[2018-09-30] MEDS: LEVOTHYROXINE 25 MCG TAB PO (06:29)
[2018-09-30] MEDS: PANTOPRAZOLE (EC) 40 MG TAB PO (06:29)
[2018-09-30] MEDS: CEPHALEXIN 500 MG CAP PO ×3 (08:14→21:08)
[2018-09-30] MEDS: MEGESTROL (40 MG/ML) 10ML CUP PO ×2 (08:14→21:03)
[2018-09-30] MEDS: ESCITALOPRAM 10 MG TAB PO (08:14)
[2018-09-30] MEDS: METOPROLOL 100 MG TAB PO ×2 (08:15→21:09)
[2018-09-30] MEDS: AMIODARONE 200 MG TAB PO (08:15)
[2018-09-30] MEDS: APIXABAN 5 MG TABLET PO (08:16)
[2018-09-30] MEDS: POTASSIUM CHLORIDE (SR) 20 MEQ TAB PO (08:16)
[2018-09-30] MEDS: CHOLECALCIFEROL 2,000 UNIT CAP PO (08:16)
[2018-09-30] MEDS: FOLIC ACID 1 MG TAB PO (08:16)
[2018-09-30] MEDS: PSYLLIUM 28% PACKET PO (08:17)
[2018-09-30] MEDS: DONEPEZIL 10 MG TAB PO (08:17)
[2018-09-30] MEDS: EZETIMIBE 10 MG TAB PO (08:17)
[2018-09-30] MEDS: PRAMIPEXOLE 0.25 MG TAB PO (21:07)
[2018-10-01 05:19] LABS: ADD MAN DIFF? NO
[2018-10-01 05:23] LABS: WHITE BLOOD COUNT 6.2 10^3/ul (4.8-10.8)
[2018-10-01 05:23] LABS: BASOPHILS % 0.5 % (0.0-2.0); EOSINOPHILS % 0.3 % (0.0-7.0); HEMATOCRIT 37.3 % (37.0-47.0); HEMOGLOBIN 12.1 g/dl (12.0-16.0); LYMPHOCYTES # 2.7 10^3/ul (0.8-2.9); MEAN CORPUSCULAR HEMOGLOBIN 32.3 pg (29.0-33.0); MEAN CORPUSCULAR HGB CONC 32.4 g/dl (32.0-37.0); MEAN CORPUSCULAR VOLUME 99.5 fl (82.0-101.0); MEAN PLATELET VOLUME 10.8 fl (7.4-10.4); MONOCYTE # 0.6 10^3/ul (0.3-0.9); MONOCYTES % 9.8 % (0.0-11.0); NEUTROPHIL # 2.9 10^3/ul (1.6-7.5); NEUTROPHILS % 46.1 % (39.0-77.0); PLATELET COUNT 142 10^3/UL (140-415); RED BLOOD COUNT 3.75 10^6/ul (4.20-5.40); RED CELL DISTRIBUTION WIDTH 19.5 % (11.5-14.5)
[2018-10-01 05:48] LABS: MAGNESIUM 2.1 mg/dl (1.7-2.5)
[2018-10-01 05:48] LABS: PHOSPHORUS 4.9 mg/dl (2.5-4.9)
[2018-10-01 05:53] LABS: ALANINE AMINOTRANSFERASE 48 IU/L (13-69); ALBUMIN 3.3 g/dl (3.3-4.9); ALBUMIN/GLOBULIN RATIO 1.22; ALKALINE PHOSPHATASE 70 IU/L (42-121); ANION GAP 12 (5-13); ASPARTATE AMINO TRANSFERASE 48 IU/L (15-46); BILIRUBIN,INDIRECT 0.4 mg/dl (0-1.1); BILIRUBIN,TOTAL 0.4 mg/dl (0.2-1.3); BLOOD UREA NITROGEN 45 mg/dl (7-20); CALCIUM 8.6 mg/dl (8.4-10.2); CARBON DIOXIDE 25 mmol/L (21-31); CHLORIDE 99 mmol/L (97-110); CREATININE 1.84 mg/dl (0.44-1.00); GLUCOSE 95 mg/dl (70-220); POTASSIUM 4.8 mmol/L (3.5-5.1); SODIUM 136 mmol/L (135-144)
[2018-10-01] MEDS: LEVOTHYROXINE 25 MCG TAB PO (06:11)
[2018-10-01] MEDS: PANTOPRAZOLE (EC) 40 MG TAB PO (06:11)
[2018-10-01] MEDS: POTASSIUM CHLORIDE (SR) 20 MEQ TAB PO (10:24)
[2018-10-01] MEDS: MEGESTROL (40 MG/ML) 10ML CUP PO ×2 (10:24→21:38)
[2018-10-01] MEDS: BUMETANIDE 1 MG TAB PO (10:24)
[2018-10-01] MEDS: PSYLLIUM 28% PACKET PO (10:24)
[2018-10-01] MEDS: ESCITALOPRAM 10 MG TAB PO (10:25)
[2018-10-01] MEDS: METOPROLOL 100 MG TAB PO ×2 (10:25→21:00)
[2018-10-01] MEDS: DONEPEZIL 10 MG TAB PO (10:25)
[2018-10-01] MEDS: AMIODARONE 200 MG TAB PO (10:25)
[2018-10-01] MEDS: CEPHALEXIN 500 MG CAP PO ×2 (10:25→14:20)
[2018-10-01] MEDS: FOLIC ACID 1 MG TAB PO (10:25)
[2018-10-01] MEDS: CHOLECALCIFEROL 2,000 UNIT CAP PO (10:25)
[2018-10-01] MEDS: EZETIMIBE 10 MG TAB PO (10:25)
[2018-10-01] MEDS: PRAMIPEXOLE 0.25 MG TAB PO (21:28)
[2018-10-02] MEDS: LEVOTHYROXINE 25 MCG TAB PO (06:41)
[2018-10-02] MEDS: PANTOPRAZOLE (EC) 40 MG TAB PO (06:42)
[2018-10-02] MEDS: DONEPEZIL 10 MG TAB PO (09:01)
[2018-10-02] MEDS: MEGESTROL (40 MG/ML) 10ML CUP PO ×2 (09:01→20:31)
[2018-10-02] MEDS: CHOLECALCIFEROL 2,000 UNIT CAP PO (09:01)
[2018-10-02] MEDS: PSYLLIUM 28% PACKET PO (09:01)
[2018-10-02] MEDS: BUMETANIDE 1 MG TAB PO (09:01)
[2018-10-02] MEDS: AMIODARONE 200 MG TAB PO (09:02)
[2018-10-02] MEDS: FOLIC ACID 1 MG TAB PO (09:02)
[2018-10-02] MEDS: ESCITALOPRAM 10 MG TAB PO (09:02)
[2018-10-02] MEDS: EZETIMIBE 10 MG TAB PO (09:02)
[2018-10-02] MEDS: METOPROLOL 100 MG TAB PO ×2 (09:02→20:33)
[2018-10-02 09:21] LABS: ANION GAP 9 (5-13); BLOOD UREA NITROGEN 47 mg/dl (7-20); CALCIUM 7.9 mg/dl (8.4-10.2); CARBON DIOXIDE 26 mmol/L (21-31); CHLORIDE 98 mmol/L (97-110); CREATININE 1.87 mg/dl (0.44-1.00); GLUCOSE 87 mg/dl (70-220); POTASSIUM 5.1 mmol/L (3.5-5.1); SODIUM 133 mmol/L (135-144)
[2018-10-02] MEDS: DEXTROSE 5%-0.45% NACL 1,000 ML IV (18:00)
[2018-10-02] MEDS: PRAMIPEXOLE 0.25 MG TAB PO (20:34)
[2018-10-03] MEDS: PANTOPRAZOLE (EC) 40 MG TAB PO (05:45)
[2018-10-03] MEDS: LEVOTHYROXINE 25 MCG TAB PO (05:45)
[2018-10-03 06:11] LABS: ADD MAN DIFF? NO
[2018-10-03 06:24] LABS: BASOPHILS % 0.5 % (0.0-2.0); EOSINOPHILS % 0.5 % (0.0-7.0); HEMATOCRIT 37.8 % (37.0-47.0); HEMOGLOBIN 12.5 g/dl (12.0-16.0); LYMPHOCYTES % 48.5 % (15.0-51.0); MEAN CORPUSCULAR HEMOGLOBIN 33.1 pg (29.0-33.0); MEAN CORPUSCULAR HGB CONC 33.1 g/dl (32.0-37.0); MEAN PLATELET VOLUME 11.2 fl (7.4-10.4); MONOCYTE # 0.6 10^3/ul (0.3-0.9); MONOCYTES % 9.2 % (0.0-11.0); NEUTROPHIL # 2.5 10^3/ul (1.6-7.5); NEUTROPHILS % 41.1 % (39.0-77.0); PLATELET COUNT 168 10^3/UL (140-415); RED BLOOD COUNT 3.78 10^6/ul (4.20-5.40); RED CELL DISTRIBUTION WIDTH 19.5 % (11.5-14.5)
[2018-10-03 06:24] LABS: WHITE BLOOD COUNT 6.2 10^3/ul (4.8-10.8)
[2018-10-03 06:34] LABS: ANION GAP 13 (5-13); BLOOD UREA NITROGEN 46 mg/dl (7-20); CALCIUM 8.1 mg/dl (8.4-10.2); CARBON DIOXIDE 26 mmol/L (21-31); CHLORIDE 96 mmol/L (97-110); CREATININE 2.14 mg/dl (0.44-1.00); GLUCOSE 88 mg/dl (70-220); MAGNESIUM 2.1 mg/dl (1.7-2.5); PHOSPHORUS 4.9 mg/dl (2.5-4.9); POTASSIUM 4.7 mmol/L (3.5-5.1); SODIUM 135 mmol/L (135-144)
[2018-10-03] MEDS: MEGESTROL (40 MG/ML) 10ML CUP PO ×2 (09:16→20:28)
[2018-10-03] MEDS: PSYLLIUM 28% PACKET PO (09:16)
[2018-10-03] MEDS: FOLIC ACID 1 MG TAB PO (09:17)
[2018-10-03] MEDS: ESCITALOPRAM 10 MG TAB PO (09:17)
[2018-10-03] MEDS: CHOLECALCIFEROL 2,000 UNIT CAP PO (09:17)
[2018-10-03] MEDS: DONEPEZIL 10 MG TAB PO (09:17)
[2018-10-03] MEDS: METOPROLOL 100 MG TAB PO ×2 (09:17→20:29)
[2018-10-03] MEDS: EZETIMIBE 10 MG TAB PO (09:17)
[2018-10-03] MEDS: AMIODARONE 200 MG TAB PO (09:19)
[2018-10-03] MEDS: DEXTROSE 5%-0.45% NACL 1,000 ML IV (13:30)
[2018-10-03] MEDS: ALBUMIN HUMAN 25% 100 ML IV ×2 (15:25→22:44)
[2018-10-03] MEDS: APIXABAN 5 MG TABLET PO (20:28)
[2018-10-04] MEDS: PANTOPRAZOLE (EC) 40 MG TAB PO (05:48)
[2018-10-04] MEDS: LEVOTHYROXINE 25 MCG TAB PO (05:48)
[2018-10-04] MEDS: ALBUMIN HUMAN 25% 100 ML IV (05:50)
[2018-10-04 06:28] LABS: ANION GAP 11 (5-13); BLOOD UREA NITROGEN 45 mg/dl (7-20); CALCIUM 8.4 mg/dl (8.4-10.2); CARBON DIOXIDE 25 mmol/L (21-31); CHLORIDE 96 mmol/L (97-110); CREATININE 1.96 mg/dl (0.44-1.00); GLUCOSE 87 mg/dl (70-220); POTASSIUM 4.6 mmol/L (3.5-5.1); SODIUM 132 mmol/L (135-144)
[2018-10-04] MEDS: DEXTROSE 5%-0.45% NACL 1,000 ML IV (09:30)
[2018-10-04] MEDS: CHOLECALCIFEROL 2,000 UNIT CAP PO (09:40)
[2018-10-04] MEDS: FOLIC ACID 1 MG TAB PO (09:40)
[2018-10-04] MEDS: ESCITALOPRAM 10 MG TAB PO (09:41)
[2018-10-04] MEDS: DONEPEZIL 10 MG TAB PO (09:41)
[2018-10-04] MEDS: EZETIMIBE 10 MG TAB PO (09:41)
[2018-10-04] MEDS: METOPROLOL 100 MG TAB PO (09:41)
[2018-10-04] MEDS: APIXABAN 5 MG TABLET PO ×2 (09:42→20:38)
[2018-10-04] MEDS: AMIODARONE 200 MG TAB PO (09:42)
[2018-10-04] MEDS: MEGESTROL (40 MG/ML) 10ML CUP PO ×2 (09:43→20:38)
[2018-10-04] MEDS: PSYLLIUM 28% PACKET PO (09:43)
[2018-10-04] MEDS: LORAZEPAM 0.5 MG TAB PO (20:38)
[2018-10-04] MEDS: METOPROLOL (XL) 100 MG TAB PO (20:39)
[2018-10-05] MEDS: DEXTROSE 5%-0.45% NACL 1,000 ML IV (05:30)
[2018-10-05] MEDS: PANTOPRAZOLE (EC) 40 MG TAB PO (05:54)
[2018-10-05] MEDS: LEVOTHYROXINE 25 MCG TAB PO (05:54)
[2018-10-05] MEDS: MEGESTROL (40 MG/ML) 10ML CUP PO ×3 (09:00→20:32)
[2018-10-05] MEDS: PSYLLIUM 28% PACKET PO (09:26)
[2018-10-05] MEDS: ESCITALOPRAM 10 MG TAB PO (09:26)
[2018-10-05] MEDS: APIXABAN 5 MG TABLET PO ×2 (09:27→20:32)
[2018-10-05] MEDS: EZETIMIBE 10 MG TAB PO (09:27)
[2018-10-05] MEDS: CHOLECALCIFEROL 2,000 UNIT CAP PO (09:27)
[2018-10-05] MEDS: DONEPEZIL 10 MG TAB PO (09:27)
[2018-10-05] MEDS: FOLIC ACID 1 MG TAB PO (09:27)
[2018-10-05] MEDS: METOPROLOL (XL) 100 MG TAB PO ×2 (09:28→20:32)
[2018-10-05] MEDS: AMIODARONE 200 MG TAB PO (09:28)
[2018-10-05] MEDS: ONDANSETRON 4 MG INJ IV (12:51)
[2018-10-05 13:53] LABS: ANION GAP 14 (5-13); BLOOD UREA NITROGEN 46 mg/dl (7-20); CALCIUM 8.9 mg/dl (8.4-10.2); CARBON DIOXIDE 20 mmol/L (21-31); CHLORIDE 97 mmol/L (97-110); GLUCOSE 99 mg/dl (70-220); POTASSIUM 4.7 mmol/L (3.5-5.1); SODIUM 131 mmol/L (135-144)
[2018-10-05] MEDS: BUMETANIDE 0.5 MG TAB PO ×2 (13:54→20:32)
[2018-10-05] MEDS: LORAZEPAM 0.5 MG TAB PO (20:38)
[2018-10-06] MEDS: LEVOTHYROXINE 25 MCG TAB PO (05:41)
[2018-10-06] MEDS: PANTOPRAZOLE (EC) 40 MG TAB PO (05:41)
[2018-10-06 06:35] LABS: ANION GAP 11 (5-13); BLOOD UREA NITROGEN 47 mg/dl (7-20); CALCIUM 8.3 mg/dl (8.4-10.2); CARBON DIOXIDE 22 mmol/L (21-31); CHLORIDE 100 mmol/L (97-110); CREATININE 1.87 mg/dl (0.44-1.00); GLUCOSE 130 mg/dl (70-220); POTASSIUM 4.1 mmol/L (3.5-5.1); SODIUM 133 mmol/L (135-144)
[2018-10-06 06:41] LABS: B-TYPE NATRIURETIC PEPTIDE 11200 PG/ML (0-450)
[2018-10-06 06:43] LABS: URIC ACID 11.9 mg/dl (3.1-7.9)
[2018-10-06] MEDS: BUMETANIDE 12 MG in DEXTROSE 5% 72 ML IV (08:48)
[2018-10-06] MEDS: CHOLECALCIFEROL 2,000 UNIT CAP PO (08:48)
[2018-10-06] MEDS: EZETIMIBE 10 MG TAB PO (08:48)
[2018-10-06] MEDS: FOLIC ACID 1 MG TAB PO (08:49)
[2018-10-06] MEDS: PSYLLIUM 28% PACKET PO (08:49)
[2018-10-06] MEDS: ESCITALOPRAM 10 MG TAB PO (08:49)
[2018-10-06] MEDS: DONEPEZIL 10 MG TAB PO (08:50)
[2018-10-06] MEDS: METOPROLOL (XL) 100 MG TAB PO ×2 (08:50→20:32)
[2018-10-06] MEDS: MEGESTROL (40 MG/ML) 10ML CUP PO (08:51)
[2018-10-06] MEDS: ALLOPURINOL 100 MG TAB PO ×2 (08:56→20:32)
[2018-10-06] MEDS: APIXABAN 5 MG TABLET PO ×2 (08:57→20:32)
[2018-10-06] MEDS: AMIODARONE 200 MG TAB PO (08:57)
[2018-10-06] MEDS: MELATONIN 5 MG TABLET PO ×2 (20:31→21:57)
[2018-10-07] MEDS: LEVOTHYROXINE 50 MCG TAB PO (05:41)
[2018-10-07] MEDS: PANTOPRAZOLE (EC) 40 MG TAB PO (05:41)
[2018-10-07 06:01] LABS: ANION GAP 9 (5-13); BLOOD UREA NITROGEN 47 mg/dl (7-20); CALCIUM 8.2 mg/dl (8.4-10.2); CARBON DIOXIDE 26 mmol/L (21-31); CHLORIDE 99 mmol/L (97-110); CREATININE 1.98 mg/dl (0.44-1.00); GLUCOSE 94 mg/dl (70-220); POTASSIUM 3.5 mmol/L (3.5-5.1); SODIUM 134 mmol/L (135-144)
[2018-10-07 06:18] LABS: FREE T4 (FREE THYROXINE) 1.22 ng/dl (0.85-1.93)
[2018-10-07] MEDS: PSYLLIUM 28% PACKET PO (08:42)
[2018-10-07] MEDS: ESCITALOPRAM 10 MG TAB PO (08:43)
[2018-10-07] MEDS: MEGESTROL (40 MG/ML) 10ML CUP PO (08:43)
[2018-10-07] MEDS: ALLOPURINOL 100 MG TAB PO ×2 (08:45→21:19)
[2018-10-07] MEDS: FOLIC ACID 1 MG TAB PO (08:45)
[2018-10-07] MEDS: CHOLECALCIFEROL 2,000 UNIT CAP PO (08:45)
[2018-10-07] MEDS: DONEPEZIL 10 MG TAB PO (08:45)
[2018-10-07] MEDS: APIXABAN 5 MG TABLET PO ×2 (08:46→21:18)
[2018-10-07] MEDS: METOPROLOL (XL) 100 MG TAB PO ×2 (08:46→21:18)
[2018-10-07] MEDS: AMIODARONE 200 MG TAB PO (08:47)
[2018-10-07] MEDS: EZETIMIBE 10 MG TAB PO (09:21)
[2018-10-07] MEDS: BUMETANIDE 12 MG in DEXTROSE 5% 72 ML IV (14:20)
[2018-10-07] MEDS: MELATONIN 5 MG TABLET PO (21:19)
[2018-10-08] MEDS: LEVOTHYROXINE 50 MCG TAB PO (06:14)
[2018-10-08] MEDS: PANTOPRAZOLE (EC) 40 MG TAB PO (06:14)
[2018-10-08] MEDS: MEGESTROL (40 MG/ML) 10ML CUP PO (08:13)
[2018-10-08] MEDS: PSYLLIUM 28% PACKET PO (08:13)
[2018-10-08] MEDS: EZETIMIBE 10 MG TAB PO (08:14)
[2018-10-08] MEDS: APIXABAN 5 MG TABLET PO ×2 (08:14→21:46)
[2018-10-08] MEDS: FOLIC ACID 1 MG TAB PO (08:14)
[2018-10-08] MEDS: AMIODARONE 200 MG TAB PO (08:14)
[2018-10-08] MEDS: CHOLECALCIFEROL 2,000 UNIT CAP PO (08:14)
[2018-10-08] MEDS: METOPROLOL (XL) 100 MG TAB PO ×2 (08:15→21:47)
[2018-10-08] MEDS: DONEPEZIL 10 MG TAB PO (08:15)
[2018-10-08] MEDS: ESCITALOPRAM 10 MG TAB PO (08:15)
[2018-10-08] MEDS: ALLOPURINOL 100 MG TAB PO ×2 (08:16→21:46)
[2018-10-08 09:14] LABS: ANION GAP 11 (5-13); BLOOD UREA NITROGEN 42 mg/dl (7-20); CALCIUM 8.4 mg/dl (8.4-10.2); CARBON DIOXIDE 31 mmol/L (21-31); CHLORIDE 98 mmol/L (97-110); CREATININE 1.52 mg/dl (0.44-1.00); GLUCOSE 115 mg/dl (70-220); SODIUM 140 mmol/L (135-144)
[2018-10-08 09:31] LABS: POTASSIUM 2.9 mmol/L (3.5-5.1)
[2018-10-08] MEDS: POTASSIUM CHLORIDE (SR) 20 MEQ TAB PO ×3 (10:13→21:46)
[2018-10-08] MEDS: PETROLATUM 5 GM OINT TOP ×2 (11:56→21:55)
[2018-10-08] MEDS: BUMETANIDE 12 MG in DEXTROSE 5% 72 ML IV (13:00)
[2018-10-08] MEDS: MELATONIN 5 MG TABLET PO (21:45)
[2018-10-08] MEDS: LORAZEPAM 0.5 MG TAB PO (23:47)
[2018-10-09 05:51] LABS: ADD MAN DIFF? NO
[2018-10-09] MEDS: PANTOPRAZOLE (EC) 40 MG TAB PO (05:58)
[2018-10-09] MEDS: LEVOTHYROXINE 50 MCG TAB PO (05:58)
[2018-10-09 06:05] LABS: BASOPHILS % 0.2 % (0.0-2.0); EOSINOPHILS % 0.6 % (0.0-7.0); HEMATOCRIT 35.1 % (37.0-47.0); HEMOGLOBIN 11.7 g/dl (12.0-16.0); LYMPHOCYTES # 2.4 10^3/ul (0.8-2.9); LYMPHOCYTES % 44.1 % (15.0-51.0); MEAN CORPUSCULAR HEMOGLOBIN 32.9 pg (29.0-33.0); MEAN CORPUSCULAR HGB CONC 33.3 g/dl (32.0-37.0); MEAN CORPUSCULAR VOLUME 98.6 fl (82.0-101.0); MEAN PLATELET VOLUME 10.8 fl (7.4-10.4); MONOCYTE # 0.7 10^3/ul (0.3-0.9); MONOCYTES % 12.3 % (0.0-11.0); NEUTROPHIL # 2.3 10^3/ul (1.6-7.5); NEUTROPHILS % 42.6 % (39.0-77.0); PLATELET COUNT 118 10^3/UL (140-415); RED BLOOD COUNT 3.56 10^6/ul (4.20-5.40); RED CELL DISTRIBUTION WIDTH 19.3 % (11.5-14.5)
[2018-10-09 06:05] LABS: WHITE BLOOD COUNT 5.4 10^3/ul (4.8-10.8)
[2018-10-09 06:26] LABS: PROTIME 19.1 Sec (11.9-14.9); PT RATIO 1.5
[2018-10-09 06:27] LABS: PARTIAL THROMBOPLASTIN TIME 30.9 Sec (23.0-35.0)
[2018-10-09 06:29] LABS: MAGNESIUM 1.7 mg/dl (1.7-2.5)
[2018-10-09 06:30] LABS: B-TYPE NATRIURETIC PEPTIDE 6090 PG/ML (0-450)
[2018-10-09 06:41] LABS: ALANINE AMINOTRANSFERASE 43 IU/L (13-69); ALBUMIN 3.1 g/dl (3.3-4.9); ALBUMIN/GLOBULIN RATIO 1.29; ALKALINE PHOSPHATASE 53 IU/L (42-121); ANION GAP 8 (5-13); ASPARTATE AMINO TRANSFERASE 35 IU/L (15-46); BILIRUBIN,INDIRECT 0.4 mg/dl (0-1.1); BILIRUBIN,TOTAL 0.4 mg/dl (0.2-1.3); BLOOD UREA NITROGEN 37 mg/dl (7-20); CALCIUM 7.9 mg/dl (8.4-10.2); CARBON DIOXIDE 34 mmol/L (21-31); CHLORIDE 102 mmol/L (97-110); CREATININE 1.19 mg/dl (0.44-1.00); GLUCOSE 96 mg/dl (70-220); POTASSIUM 3.5 mmol/L (3.5-5.1); SODIUM 144 mmol/L (135-144); TOTAL PROTEIN 5.5 g/dl (6.1-8.1)
[2018-10-09] MEDS: FOLIC ACID 1 MG TAB PO (08:34)
[2018-10-09] MEDS: POTASSIUM CHLORIDE (SR) 20 MEQ TAB PO ×3 (08:34→20:24)
[2018-10-09] MEDS: PETROLATUM 5 GM OINT TOP ×2 (08:34→20:25)
[2018-10-09] MEDS: CHOLECALCIFEROL 2,000 UNIT CAP PO (08:34)
[2018-10-09] MEDS: ESCITALOPRAM 10 MG TAB PO (08:34)
[2018-10-09] MEDS: ALLOPURINOL 100 MG TAB PO ×2 (08:34→20:24)
[2018-10-09] MEDS: EZETIMIBE 10 MG TAB PO (08:34)
[2018-10-09] MEDS: DONEPEZIL 10 MG TAB PO (08:35)
[2018-10-09] MEDS: METOPROLOL (XL) 100 MG TAB PO ×2 (08:35→20:24)
[2018-10-09] MEDS: PSYLLIUM 28% PACKET PO (08:35)
[2018-10-09] MEDS: APIXABAN 5 MG TABLET PO ×2 (08:35→20:24)
[2018-10-09] MEDS: MEGESTROL (40 MG/ML) 10ML CUP PO (08:35)
[2018-10-09] MEDS: AMIODARONE 200 MG TAB PO (08:36)
[2018-10-09] MEDS: DOCUSATE SODIUM 100 MG CAP PO ×2 (09:25→20:24)
[2018-10-09] MEDS: POLYETHYLENE GLYCOL 17 GM PACKET PO (09:25)
[2018-10-09] MEDS: MAGNESIUM SULFATE 2 GM/50 ML 50 ML IVPB (11:39)
[2018-10-09] MEDS: BUMETANIDE 12 MG in DEXTROSE 5% 72 ML IV (14:38)
[2018-10-09] MEDS: MELATONIN 5 MG TABLET PO (20:24)
[2018-10-10] MEDS: LORAZEPAM 0.5 MG TAB PO ×2 (01:00→20:19)
[2018-10-10] MEDS: LEVOTHYROXINE 50 MCG TAB PO (05:19)
[2018-10-10] MEDS: PANTOPRAZOLE (EC) 40 MG TAB PO (05:19)
[2018-10-10 06:12] LABS: ANION GAP 9 (5-13); BLOOD UREA NITROGEN 41 mg/dl (7-20); CALCIUM 8.6 mg/dl (8.4-10.2); CARBON DIOXIDE 31 mmol/L (21-31); CHLORIDE 104 mmol/L (97-110); CREATININE 1.36 mg/dl (0.44-1.00); GLUCOSE 104 mg/dl (70-220); SODIUM 144 mmol/L (135-144)
[2018-10-10 06:24] LABS: POTASSIUM 5.4 mmol/L (3.5-5.1)
[2018-10-10] MEDS: MEGESTROL (40 MG/ML) 10ML CUP PO (08:23)
[2018-10-10] MEDS: CHOLECALCIFEROL 2,000 UNIT CAP PO (08:23)
[2018-10-10] MEDS: EZETIMIBE 10 MG TAB PO (08:23)
[2018-10-10] MEDS: PSYLLIUM 28% PACKET PO (08:24)
[2018-10-10] MEDS: ESCITALOPRAM 10 MG TAB PO (08:24)
[2018-10-10] MEDS: DOCUSATE SODIUM 100 MG CAP PO ×2 (08:24→20:19)
[2018-10-10] MEDS: POLYETHYLENE GLYCOL 17 GM PACKET PO (08:24)
[2018-10-10] MEDS: PETROLATUM 5 GM OINT TOP ×2 (08:24→20:20)
[2018-10-10] MEDS: ALLOPURINOL 100 MG TAB PO ×2 (08:24→20:20)
[2018-10-10] MEDS: AMIODARONE 200 MG TAB PO (08:25)
[2018-10-10] MEDS: METOPROLOL (XL) 100 MG TAB PO ×2 (08:25→20:20)
[2018-10-10] MEDS: FOLIC ACID 1 MG TAB PO (08:25)
[2018-10-10] MEDS: DONEPEZIL 10 MG TAB PO (08:25)
[2018-10-10] MEDS: POTASSIUM CHLORIDE (SR) 20 MEQ TAB PO (08:26)
[2018-10-10] MEDS: APIXABAN 5 MG TABLET PO ×2 (08:27→20:19)
[2018-10-10] MEDS: NA POLYST SULFON 15 GM/60 ML BTL PO (11:10)
[2018-10-10] MEDS: MELATONIN 5 MG TABLET PO (20:20)
[2018-10-11] MEDS: LEVOTHYROXINE 50 MCG TAB PO (05:59)
[2018-10-11] MEDS: PANTOPRAZOLE (EC) 40 MG TAB PO (05:59)
[2018-10-11 06:15] LABS: ANION GAP 8 (5-13); BLOOD UREA NITROGEN 43 mg/dl (7-20); CALCIUM 8.8 mg/dl (8.4-10.2); CARBON DIOXIDE 32 mmol/L (21-31); CHLORIDE 102 mmol/L (97-110); CREATININE 1.86 mg/dl (0.44-1.00); GLUCOSE 84 mg/dl (70-220); POTASSIUM 4.1 mmol/L (3.5-5.1); SODIUM 142 mmol/L (135-144)
[2018-10-11] MEDS: POLYETHYLENE GLYCOL 17 GM PACKET PO (09:00)
[2018-10-11] MEDS: DOCUSATE SODIUM 100 MG CAP PO (09:00)
[2018-10-11] MEDS: PETROLATUM 5 GM OINT TOP (09:15)
[2018-10-11] MEDS: DONEPEZIL 10 MG TAB PO (09:15)
[2018-10-11] MEDS: AMIODARONE 200 MG TAB PO (09:15)
[2018-10-11] MEDS: EZETIMIBE 10 MG TAB PO (09:15)
[2018-10-11] MEDS: FOLIC ACID 1 MG TAB PO (09:15)
[2018-10-11] MEDS: METOPROLOL (XL) 100 MG TAB PO (09:16)
[2018-10-11] MEDS: MEGESTROL (40 MG/ML) 10ML CUP PO (09:16)
[2018-10-11] MEDS: ALLOPURINOL 100 MG TAB PO (09:16)
[2018-10-11] MEDS: ESCITALOPRAM 10 MG TAB PO (09:16)
[2018-10-11] MEDS: APIXABAN 5 MG TABLET PO (09:16)
[2018-10-11] MEDS: CHOLECALCIFEROL 2,000 UNIT CAP PO (09:16)
[2018-10-11] MEDS: PSYLLIUM 28% PACKET PO (09:19)
[2018-10-11] MEDS: BUMETANIDE 1 MG TAB PO (12:09)
[2018-10-11] MEDS: POTASSIUM CHLORIDE (SR) 20 MEQ TAB PO (12:09)
== END 2018-10-11 15:05 | disposition home health service (06) | DRG 391 ==
LOC: ICU 09-14 11:28 → 6WM 09-16 00:19 → E/R 21:55 → PP2 09-13 04:47 → 6WM 09-14 22:50
DX: A08.4 Viral intestinal infection, unspecified (principal); I50.43 Acute on chronic combined systolic (congestive) and diastolic (congestive) heart failure; I13.0 Hypertensive heart and chronic kidney disease with heart failure and stage 1 through stage 4 chronic kidney disease, or unspecified chronic kidney disease; N17.9 Acute kidney failure, unspecified; D68.9 Coagulation defect, unspecified; E87.0 Hyperosmolality and hypernatremia; L03.116 Cellulitis of left lower limb; N39.0 Urinary tract infection, site not specified; E87.5 Hyperkalemia; I48.91 Unspecified atrial fibrillation; N18.3 Chronic kidney disease, stage 3 (moderate); M06.9 Rheumatoid arthritis, unspecified; K74.60 Unspecified cirrhosis of liver; E03.9 Hypothyroidism, unspecified; E78.5 Hyperlipidemia, unspecified; E87.6 Hypokalemia; Z79.02 Long term (current) use of antithrombotics/antiplatelets; Z95.0 Presence of cardiac pacemaker
CPT/HCPCS: 36415; 36600; 71045; 73630-LT; 74176; 80048; 80053; 81001; 82103; 82390; 82525; 82803; 83690; 83735; 83880; 84100; 84439; 84443; 84484; 84560; 85025; 85335; 85610; 85730; 86038; 86255; 86704; 86709; 86803; 87045; 87081; 87086; 87177; 87340; 93005; 93306; 93970; 93971; 97110; 97116; 97162; 97530; 99285-25; G0378